=== PATIENT | female | born 1960 | race Caucasian/White ===

== ENCOUNTER → 2018-05-20 | Outpatient (CLI) | payer BC ==
[2013-10-17 16:07] VITALS: BP 131/73
[~2018-05-20] MED LIST: SERTRALINE HCL50 MG PO
== END ==
LOC: MAMMO 09:06
DX: Z12.31 Encounter for screening mammogram for malignant neoplasm of breast (principal)

== ENCOUNTER 2020-11-08 18:07 | Emergency (ER) | payer BC ==
[~2020-11-08] VITALS: Wt 103.2 kg
[2020-11-08] MEDS ORDERED: BUPROPION XL450 MG (18:25)
[2020-11-08] MEDS ORDERED: GLUCOPHAGE (18:25)
[2020-11-08] MEDS ORDERED: VENLAFAXINE HYD75 M1 PO (18:25)
[2020-11-08 18:42] LABS: HEMATOCRIT 42.6 % (37.0-47.0); HEMOGLOBIN 14.1 g/dL (12.5-16.0); LYMPH# 1.2 (1.50-4.00); MEAN CELL VOLUME 85 fl (78-100); MEAN CORPUSCULAR HEMOGLOBIN 28 pg (27-31); MEAN CORPUSCULAR HGB CONC 33 g/dL (33-37); MEAN PLATELET VOLUME 11.6 fl (7.4-10.4); MONO # 0.6 (0.20-0.80); NEU # 3.7 (1.40-6.50); PLATELET COUNT 195 K/mm3 (130-400); RED CELL DISTRIBUTION WIDTH 14.1 % (11.5-14.5); WHITE BLOOD COUNT 5.5 K/mm3 (4.8-10.8)
[2020-11-08 18:49] LABS: ALBUMIN 3.9 g/dL (3.5-5.0); POTASSIUM 3.5 mmol/L (3.5-5.1); SODIUM 138 mmol/L (136-145)
[2020-11-08 18:51] LABS: CALCIUM 8.4 mg/dL (8.3-10.5)
[2020-11-08 18:52] LABS: GLUCOSE 238 mg/dL (65-105); TOTAL PROTEIN 6.6 g/dL (6.4-8.3)
[2020-11-08 18:53] LABS: CARBON DIOXIDE 20 mmol/L (22-29)
[2020-11-08 18:54] LABS: TOTAL BILIRUBIN 0.4 mg/dL (0.2-1.2)
[2020-11-08 18:57] LABS: AST-SGOT 24 U/L (5-34); D-DIMER 0.65 mg/L FEU (0.15-0.50)
[2020-11-08 18:58] LABS: ALT/SGPT 39 U/L (0-55)
[2020-11-08 19:12] LABS: TROPONIN-I < 0.03 ng/mL (<0.030)
[2020-11-08] MEDS ORDERED: ZOFRAN ODT4 MG PO (21:31)
[2020-11-08] MEDS ORDERED: PROAIR HFA0.09 MG/AC IH (21:31)
[2020-11-08] MEDS ORDERED: MORGIDOX 1X100100 MG PO (21:31)
[2020-11-08 21:44] VITALS: BP 110/57
== END 2020-11-08 22:00 | disposition home or self-care (01) ==
LOC: ED 18:07
PROVIDERS: Physician Assistant
DX: U07.1 COVID-19 (principal); F32.9 Major depressive disorder, single episode, unspecified; F41.9 Anxiety disorder, unspecified; E11.9 Type 2 diabetes mellitus without complications; Z79.84 Long term (current) use of oral hypoglycemic drugs
CPT/HCPCS: J0696; J2405; J7030; Q9967

== ENCOUNTER → 2021-02-06 | Outpatient (CLI) | payer BC ==
[~2021-02-06] MED LIST changes: +BUPROPION XL450 MG; +GLUCOPHAGE; +MORGIDOX 1X100100 MG PO; +PROAIR HFA0.09 MG/AC IH; +VENLAFAXINE HYD75 M1 PO; +ZOFRAN ODT4 MG PO
== END ==
LOC: MAMMO 08:29
DX: Z12.31 Encounter for screening mammogram for malignant neoplasm of breast (principal); N64.89 Other specified disorders of breast

== ENCOUNTER → 2021-02-12 | Outpatient (CLI) | payer BC | LOC: MAMMO 02-11 08:15 | DX: N64.89 Other specified disorders of breast (principal) ==

== ENCOUNTER → 2022-02-22 | Outpatient (CLI) | payer BC | LOC: MAMMO 07:56 | DX: Z12.31 Encounter for screening mammogram for malignant neoplasm of breast (principal) ==